=== PATIENT | female | born 1965 | race Two or more races ===

== ENCOUNTER 2019-03-29 12:08 | Emergency (ER) | payer BC ==
[~2019-03-29] VITALS: Ht 157.5 cm; Wt 95.3 kg
[2019-03-29 12:15] VITALS: BP 133/71
[2019-03-29] MEDS ORDERED: SODIUM CHLORIDE 0.9% 1,000 ML IVB ONE (12:18)
[2019-03-29] MEDS ORDERED: SODIUM CHLORIDE 0.9% 1,000 ML IV ONE (12:18)
[2019-03-29] MEDS ORDERED: ONDANSETRON HCL 4 MG/2 ML VIAL IV ONE (12:30)
[2019-03-29] MEDS ORDERED: MORPHINE SULFATE 4 MG/ML SYR/VIAL IV ONE (12:30)
[2019-03-29 13:02] LABS: Basophils # (auto) 0.1 uL; Basophils % (auto) 0.7 % (0.0-2.0); Eosinophils # (auto) 0 uL; Eosinophils % (auto) 0.5 % (0.0-7.0); Hematocrit 40.8 % (36.0-46.0); Hemoglobin 13.8 g/dL (12.2-16.2); Lymphocytes # (auto) 2.9 uL; Lymphocytes % (auto) 31.8 % (10.0-50.0); Mean Corpuscular Hemoglobin 29.5 pg (28.0-32.0); Mean Corpuscular Hgb Conc. 33.7 g/dL (32.0-36.0); Mean Corpuscular Volume 87.5 fL (80.0-100.0); Monocytes # (auto) 0.5 uL; Neutrophils # (auto) 5.5 uL; Nucleated Red Blood Cells % 0.1 %; Platelet Count (auto) 257 10^3/uL (140-450); Red Blood Cells 4.66 10^6/uL (4.0-5.20); Red Cell Distribution Width 14.8 % (11.8-14.3); White Blood Cell 9.1 10^3/uL (4.4-10.8)
[2019-03-29 13:16] LABS: INR 1.08 (0.9-1.15); Partial Thromboplastin Time 31.1 sec (23.64-32.05)
[2019-03-29 13:17] LABS: Albumin 3.7 g/dL (3.4-5.0); Calcium 9.2 mg/dL (8.5-10.1); Potassium 3.8 mmol/L (3.5-5.1)
[2019-03-29 13:20] LABS: BUN/Creatinine Ratio 15.3; Bilirubin, Total 0.5 mg/dL (0.2-1.0); Total Protein 7.8 g/dL (6.4-8.2)
[2019-03-29] MEDS ORDERED: IOHEXOL 300 MG/ML 100ML BOTTLE IJ ONE (13:46)
== END 2019-03-29 17:35 | disposition left against medical advice (07) ==
LOC: ER 12:08
DX: D3A.00 Benign carcinoid tumor of unspecified site (principal)
CPT/HCPCS: 36415; 74177; 80053; 82150; 83690; 85025; 85610; 85730; 93005; 96374; 99284; J2405; J7030; Q9967